=== PATIENT | male | born 1995 | race Caucasian/White ===

== ENCOUNTER 2023-09-09 13:13 | Emergency (ER) | payer OTHER, SELFPAY ==
[2023-09-09 13:15] VITALS: BP 146/108
[2023-09-09] MEDS: MOTRIN 600 MG PO (14:28)
[2023-09-09] MEDS: ADACEL 0.5 ML IM (14:29)
--- NOTE | 2023-09-09 15:53 | ED.SKININJ ---
HPI-Injury
General
Chief Complaint: Skin Surface Trauma
Source: patient
Exam Limitations: none
Time Seen by Provider: 09/09/23 13:28
Nursing documentation reviewed up to this point in time: agreed with
Travel History
Have you had any contact with someone who has COVID-19?: No
Do you have any symptoms of coronavirus? Fever > 100 degrees, chills, cough, shortness of breath, sore throat, loss of taste or smell, muscle aches, or headache?: No
History of Present Illness-Injury
Is this injury a work related problem?: No
Is pt an associate of [facility]?: No
Initial Injury comments:
Accidentally cut fingers on upholstery trimmer. Sustained lacerations to left palmar 2nd and 3rd fingers. Injury occurred just [employer]. Brought to ED by spouse for eval.
Past History
Past History
ED Past Medical History: None
ED Past Surgical History: None
Social History
Tobacco: Non-smoker
Alcohol: None
Drug: None
Living: with family
Review of Systems
Review of Systems
Allergies reviewed?: Yes
All Other Systems: ROS reviewed and negative except as documented in HPI and ROS
Constitutional: Reports no symptoms
Musculoskeletal: Reports no symptoms
Skin: Reports other (Laceration to left 2nd and 3rd fingers.)
Neurological: Reports no symptoms
Psychiatric: Reports no symptoms
Skin Exam
Laceration
Left Palmar Second Finger:
Length in cm: 2
Orientation: stellate
Type of Laceration: simple
Any active bleeding?: no active bleeding
Distal skin color and temperature: normal-warm & good color
Normal distal neurovascular exam: Yes
Range of motion: full
Left Palmar Third Finger:
Length in cm: 2
Orientation: stellate
Type of Laceration: simple
Any active bleeding?: no active bleeding
Distal skin color and temperature: normal-warm & good color
Normal distal neurovascular exam: Yes
Range of motion: full
Phy Exam
General Physical Exam
General Presentation: well appearing and no apparent distress
General age: appears stated age
General Skin: warm and dry
General Habitus: normal
Musculoskeletal Exam
Musculoskeletal Exam: full ROM and neuro vasc intact
Skin Exam
Skin Exam: normal color, warm/dry and no rash
Psychiatric Exam
Psychiatric Exam: normal mood/affect
Course
Orders/Labs/Results
Orders:
Orders
09/09/23 14:22
Ibuprofen [Motrin] 600 mg PO NOW STA
Tetanus/Diphth/Acelpertussis [Adacel] 0.5 ml IM .ONCE ONE
CR Hand - Left Min 3 Views Urgent
Reason For Exam: trauma
Vital Signs
Initial and Last Documented VS:
Initial Vital Signs
Temp Pulse Resp BP Pulse Ox
98.7 F 70 24 146/108 98
09/09/23 13:15 09/09/23 13:15 09/09/23 13:15 09/09/23 13:15 09/09/23 13:15
Last Documented Vital Signs
Temp Pulse Resp BP Pulse Ox
98.7 F 65 20 139/72 98
09/09/23 13:15 09/09/23 16:05 09/09/23 16:05 09/09/23 16:05 09/09/23 16:05
Procedures
Laceration Closure
Left Second Finger:
Status of Wound: clean
Description of Wound Edges: ragged
Preparation: cleaned with saline and cleaned with Betadine
Anesthesia: 1% Lidocaine and Digital-Regional
Revision/Debridement: routine- no revision
Wound exploration: explored to base- no FB and no tendon involvement
Type of Closure: single layer closure
Skin Closure Material: 5-0 prolene
Number of sutures: 8
Left Third Finger:
Status of Wound: clean
Description of Wound Edges: ragged
Preparation: cleaned with saline and cleaned with Betadine
Anesthesia: 1% Lidocaine and Digital-Regional
Revision/Debridement: routine- no revision
Wound exploration: explored to base- no FB and no tendon involvement
Type of Closure: single layer closure
Skin Closure Material: 5-0 prolene
Number of sutures: 10
*Radiology
Radiology exam reviewed: radiology read reviewed
*Pulse Oximetry
Patient hypoxic: no
*Critical Care Note
Total Time (30-74mins, 75-104mins- exclusive of procedures): Not Applicable
ED Attending Note
-
Portions of this chart may have been created with voice recognition software.� Occasional wrong word or��sound alike� substitutions may have occurred due to the inherent limitations of voice recognition software.
Discharge Plan
Departure
Patient Disposition: Home (Routine Discharge)
Date of Disposition: 09/09/23
Time of Disposition: 15:31
Patient with high blood pressure during this ER visit?: No
Condition: Good
Covid-19: Not Applicable
Discharge Problem:
Finger laceration
Instructions: Laceration Repair With Stitches (DC), Using Cold for Pain, Ibuprofen
Prescriptions:
No Action
ibuprofen 200 MG tablet
2 tab PO
cephalexin [Keflex] 500 MG capsule
500 mg PO Q6 Qty: 28 0RF
Referrals:
UNKNOWN - PT DOES,NOT KNOW [Family Provider] -
Activity Restrictions/Additional Instructions:
Sutures can be removed in 7-10 days by your family doctor.
Interventions
Interventions:
*Risk Screen - Suicide Last Done: 09/09/23 16:03
*General Assessment Last Done: 09/09/23 16:03
*Neglect/Abuse Screening Last Done: 09/09/23 16:03
ED- Fall Risk Assessment Last Done: 09/09/23 16:05
*ED COVID-19 Vaccine History Last Done: 09/09/23 16:03
*Nursing Disposition Last Done: 09/09/23 16:05
ED-Skin Assessment Last Done: 09/09/23 16:03
Discharge Date and Time
Discharge Date/Time: 09/09/23 16:00
Print Language: [place]
[2023-09-09 16:05] VITALS: BP 139/72
== END 2023-09-09 16:00 | disposition home or self-care (01) ==
LOC: EMR 13:13
PROVIDERS: EMERGENCY PHYSICIAN Emergency Medicine
DX: S61.211A Laceration without foreign body of left index finger without damage to nail, initial encounter (principal); S61.213A Laceration without foreign body of left middle finger without damage to nail, initial encounter; W29.3XXA Contact with powered garden and outdoor hand tools and machinery, initial encounter; Z23 Encounter for immunization
CPT/HCPCS: 64450; 99284; 12002; 90471; 73130; 90715